=== PATIENT | male | born 1975 | race Caucasian/White ===

== ENCOUNTER 2021-11-13 16:20 | Inpatient (IN) | payer SELFPAY ==
[~2021-11-13] VITALS: Ht 167.6 cm; Wt 68.3 kg
[2021-11-13] MEDS ORDERED: SODIUM CHLORIDE 0.9% 1,000 ML IV ONE ×2 (16:45→18:45)
[2021-11-13 17:21] LABS: BASOPHILS % 0.6 % (0.0-2.0); EOSINOPHILS % 0.2 % (0.0-5.0); HEMATOCRIT. 41.4 % (42.0-52.0); HEMOGLOBIN. 13.5 g/dL (14.0-18.0); LYMPHOCYTES % 20.5 % (20.0-50.0); MEAN CORPUSCULAR HEMOGLOBIN 29.1 pg (28.0-32.0); MEAN CORPUSCULAR VOLUME 89.6 fL (80.0-94.0); MEAN PLATELET VOLUME 7.9 fl (7.4-10.4); MONOCYTES % 6.6 % (2.0-8.0); NEUTROPHILS % 72.1 % (40.0-76.0); PLATELET 406 x1000/uL (130-400); RED BLOOD CELL COUNT 4.62 mill/uL (4.7-6.1); RED CELL DISTRIBUTION WIDTH 16.2 % (11.6-14.6)
[2021-11-13 17:39] LABS: CHLORIDE 95 mEq/L (98-107)
[2021-11-13 17:41] LABS: BG BASE EXCESS -1.4 mmol/L (-2.0-2.0); BG CARBOXYHEMOGLOBIN 1.2 % (0.5-1.5); BG DEOXYHEMOGLOBIN 5.1 % (0.0-5.0); BG FRACTION INSPIRED OXYGEN 21; BG HCO3 ACT 24.2 mmol/L (22.0-26.0); BG METHEMOGLOBIN 0.2 % (0.0-1.5); BG OXYGEN SATURATION 94.8 % (92.0-98.5); BG OXYHEMOGLOBIN 93.5 % (94.0-97.0); BG PCO2 44.3 mmHg (35.0-45.0); BG PH 7.356 (7.350-7.450); BG SAMPLE SITE RIGHT RADIAL; BG TOTAL HEMOGLOBIN 14.1 g/dL (12.0-18.0); BG VENT MODE ROOM AIR
[2021-11-13 17:48] LABS: BETA HYDROXYBUTYRATE 0.9 mMol/L (0.0-0.3); ETHANOL BLOOD < 10 mg/dL
[2021-11-13] MEDS ORDERED: INSULIN REGULAR (HUMULIN R) 300UNITS/3ML VIAL IV ONE (18:15)
[2021-11-13 18:43] LABS: CLARITY URINE CLEAR (CLEAR); COLOR URINE YELLOW (YELLOW); KETONES URINE TRACE (NEGATIVE); LEUKOCYTE ESTERASE URINE NEGATIVE (NEGATIVE); NITRITE URINE NEGATIVE (NEGATIVE); OCCULT BLOOD URINE NEGATIVE (NEGATIVE); PROTEIN URINE NEGATIVE (NEGATIVE); SPECIFIC GRAVITY URINE 1.033 (1.005-1.030); UROBILINOGEN URINE 0.2 E.U./dL (0.2-1.0)
[2021-11-13 18:54] LABS: *AMPHETAMINES SCREEN URINE NEGATIVE (NEGATIVE); *BARBITURATES SCREEN URINE NEGATIVE (NEGATIVE); *BENZODIAZEPINES SCREEN URINE NEGATIVE (NEGATIVE); *COCAINE SCREEN URINE NEGATIVE (NEGATIVE); CANNABINOID URINE SCREEN NEGATIVE (NEGATIVE); METHADONE URINE SCREEN NEGATIVE (NEGATIVE); OPIATES URINE SCREEN NEGATIVE (NEGATIVE); PHENCYCLIDINE URINE SCREEN NEGATIVE (NEGATIVE)
[2021-11-13] MEDS ORDERED: FAMOTIDINE 20MG TABLET PO SCH (21:00)
[2021-11-13] MEDS ORDERED: MAGNESIUM/ALUMINUM HYDROXIDE/SIMETHICONE 30ML UDC PO PRN (21:00)
[2021-11-13] MEDS ORDERED: ACETAMINOPHEN 325MG TABLET PO PRN ×2 (21:00)
[2021-11-13] MEDS ORDERED: ONDANSETRON HCL 4MG/2ML INJ IV PRN (21:00)
[2021-11-13] MEDS ORDERED: ZOLPIDEM TARTRATE 5MG TABLET PO PRN (21:00)
[2021-11-13] MEDS ORDERED: CLONIDINE 0.1MG TABLET PO PRN (21:00)
[2021-11-13] MEDS ORDERED: DEXTROSE 50% WATER 50ML SYRINGE IV PRN (21:00)
[2021-11-13] MEDS ORDERED: DIPHENHYDRAMINE 50MG/ML VIAL IV PRN (21:00)
[2021-11-13] MEDS: BLOOD SUGAR DIAGNOSTIC STRIP TEST SCH (21:50)
[2021-11-13] MEDS: SODIUM CHLORIDE 0.9% 1,000 ML IV SCH (21:55)
[2021-11-13] MEDS ORDERED: INSULIN GLARGINE 100 UNITS/ML SUBCUT SCH (22:00)
[2021-11-13] MEDS: INSULIN LISPRO 100 UNITS/ML SUBCUT SCH (22:19)
[2021-11-14 06:37] LABS: BASOPHILS % 1.1 % (0.0-2.0); EOSINOPHILS % 0.7 % (0.0-5.0); HEMATOCRIT. 37.9 % (42.0-52.0); HEMOGLOBIN. 12.8 g/dL (14.0-18.0); LYMPHOCYTES % 25.8 % (20.0-50.0); MEAN CORPUSCULAR HEMOGLOBIN 28.8 pg (28.0-32.0); MEAN CORPUSCULAR VOLUME 85.3 fL (80.0-94.0); MEAN PLATELET VOLUME 7.3 fl (7.4-10.4); MONOCYTES % 7.1 % (2.0-8.0); NEUTROPHILS % 65.3 % (40.0-76.0); PLATELET 377 x1000/uL (130-400); RED BLOOD CELL COUNT 4.45 mill/uL (4.7-6.1); RED CELL DISTRIBUTION WIDTH 15.8 % (11.6-14.6)
[2021-11-14 06:41] LABS: CHLORIDE 109 mEq/L (98-107)
[2021-11-14 06:45] LABS: PHOSPHORUS 4.3 mg/dL (2.5-4.9)
[2021-11-14] MEDS ORDERED: METFORMIN HCL 500MG TABLET PO SCH (07:00)
[2021-11-14] MEDS: BLOOD SUGAR DIAGNOSTIC STRIP TEST SCH ×3 (08:05→12:20)
[2021-11-14] MEDS: INSULIN LISPRO 100 UNITS/ML SUBCUT SCH ×2 (08:06→12:50)
[2021-11-14] MEDS: SODIUM CHLORIDE 0.9% 1,000 ML IV SCH (08:10)
[2021-11-14] MEDS ORDERED: POTASSIUM CHLORIDE 20MEQ TABLET SR PO NR (10:00)
[2021-11-14 12:00] VITALS: BP 124/67
[2021-11-14 15:08] VITALS: BP 124/67
== END 2021-11-14 16:02 | disposition home or self-care (01) | DRG 420 ==
LOC: ER 16:20 → MICUSO 19:13 → ENRESERV 20:02 → 6EST 11-14 11:52
PROVIDERS: ADMIT Internal Medicine; ATTEND Internal Medicine
DX: E11.65 Type 2 diabetes mellitus with hyperglycemia (principal); E87.1 Hypo-osmolality and hyponatremia; E86.0 Dehydration; K02.9 Dental caries, unspecified; Z83.3 Family history of diabetes mellitus
CPT/HCPCS: 36415; 36600; 71045; 80048; 80053; 80305; 80320; 81003; 82010; 82375; 82805; 82962; 83036; 83735; 84100; 85025; 93005; 99291; J1815; J7030; G0480

== ENCOUNTER 2022-03-05 15:39 | Emergency (ER) | payer SELFPAY ==
[~2022-03-05] VITALS: Ht 172.7 cm; Wt 68.0 kg
[2022-03-05 19:58] LABS: BASOPHILS % 0.5 % (0.0-2.0); EOSINOPHILS % 0.4 % (0.0-5.0); HEMATOCRIT. 39.8 % (42.0-52.0); LYMPHOCYTES % 37.5 % (20.0-50.0); MEAN CORPUSCULAR HEMOGLOBIN 27.2 pg (28.0-32.0); MEAN CORPUSCULAR VOLUME 83.2 fL (80.0-94.0); MEAN PLATELET VOLUME 7.5 fl (7.4-10.4); MONOCYTES % 6.7 % (2.0-8.0); NEUTROPHILS % 54.9 % (40.0-76.0); PLATELET 512 x1000/uL (130-400); RED BLOOD CELL COUNT 4.79 mill/uL (4.7-6.1); RED CELL DISTRIBUTION WIDTH 14.5 % (11.6-14.6)
[2022-03-05 20:05] LABS: CHLORIDE 105 mEq/L (98-107)
[2022-03-05 20:12] LABS: ETHANOL BLOOD < 10 mg/dL
[2022-03-05 20:15] LABS: *AMPHETAMINES SCREEN URINE NEGATIVE (NEGATIVE); *BARBITURATES SCREEN URINE NEGATIVE (NEGATIVE); *BENZODIAZEPINES SCREEN URINE NEGATIVE (NEGATIVE); *COCAINE SCREEN URINE NEGATIVE (NEGATIVE); CANNABINOID URINE SCREEN NEGATIVE (NEGATIVE); METHADONE URINE SCREEN NEGATIVE (NEGATIVE); OPIATES URINE SCREEN NEGATIVE (NEGATIVE); PHENCYCLIDINE URINE SCREEN NEGATIVE (NEGATIVE)
[2022-03-05] MEDS ORDERED: OMEP20CA14 MT (20:41)
[2022-03-05 22:15] VITALS: BP 112/75
== END 2022-03-05 21:00 | disposition home or self-care (01) ==
LOC: ER 16:48
DX: R10.9 Unspecified abdominal pain (principal); E11.65 Type 2 diabetes mellitus with hyperglycemia
CPT/HCPCS: 36415; 80053; 80305; 80320; 82962; 85025; 99283; G0480

== ENCOUNTER 2022-06-23 18:10 | Emergency (ER) | payer SELFPAY ==
[~2022-06-23] VITALS: Ht 167.6 cm; Wt 82.1 kg
[~2022-06-23 18:10] MED LIST: OMEP20CA14 MT
[2022-06-23 23:15] LABS: BASOPHILS % 0.9 % (0.0-2.0); EOSINOPHILS % 0.3 % (0.0-5.0); HEMATOCRIT. 40.5 % (42.0-52.0); HEMOGLOBIN. 13.1 g/dL (14.0-18.0); LYMPHOCYTES % 30.6 % (20.0-50.0); MEAN CORPUSCULAR HEMOGLOBIN 25.8 pg (28.0-32.0); MEAN CORPUSCULAR VOLUME 79.5 fL (80.0-94.0); MEAN PLATELET VOLUME 7.3 fl (7.4-10.4); MONOCYTES % 10.6 % (2.0-8.0); NEUTROPHILS % 57.6 % (40.0-76.0); PLATELET 428 x1000/uL (130-400); RED BLOOD CELL COUNT 5.09 mill/uL (4.7-6.1); RED CELL DISTRIBUTION WIDTH 15.4 % (11.6-14.6)
[2022-06-23 23:21] LABS: CHLORIDE 105 mEq/L (98-107)
[2022-06-23 23:29] LABS: ETHANOL BLOOD < 10 mg/dL
[2022-06-23 23:52] LABS: PROTHROMBIN TIME 10.3 sec (9.6-11.0)
[2022-06-24 06:30] VITALS: BP 114/68
[2022-06-24] MEDS ORDERED: ACETAMINOPHEN 325MG TABLET PO ONE (08:15)
== END 2022-06-24 09:31 | disposition home or self-care (01) ==
LOC: ER 18:10
DX: R42 Dizziness and giddiness (principal); R20.0 Anesthesia of skin
CPT/HCPCS: 36415; 71045; 80053; 80320; 82962; 85025; 93005; 99285; G0480

== ENCOUNTER 2022-10-29 06:41 | Emergency (ER) | payer SELFPAY ==
[~2022-10-29] VITALS: Ht 172.7 cm; Wt 85.5 kg
[2022-10-29] MEDS ORDERED: KETOROLAC 30MG/ML VIAL IM ONE (10:30)
[2022-10-29 10:40] VITALS: BP 130/67
[2022-10-29] MEDS ORDERED: NAPR-681 MT (10:53)
[2022-10-29] MEDS ORDERED: ACET-2708 MT (10:53)
[2022-10-29] MEDS ORDERED: LIDO700A15 TP (10:53)
== END 2022-10-29 11:22 | disposition home or self-care (01) ==
LOC: ER 06:41
DX: M75.31 Calcific tendinitis of right shoulder (principal); E11.9 Type 2 diabetes mellitus without complications
CPT/HCPCS: 73030; 96372; 99283; J1885; Z7610

== ENCOUNTER 2023-03-19 08:15 | Emergency (ER) | payer SELFPAY ==
[~2023-03-19] VITALS: Ht 172.7 cm; Wt 95.3 kg
[~2023-03-19 08:15] MED LIST changes: +ACET-2708 MT; +LIDO700A15 TP; +NAPR-681 MT
[2023-03-19 08:25] VITALS: O2SAT 97
[2023-03-19 08:54] LABS: CLARITY URINE CLEAR (CLEAR); COLOR URINE YELLOW (YELLOW); GLUCOSE URINE 3+ (NEGATIVE); KETONES URINE 2+ (NEGATIVE); LEUKOCYTE ESTERASE URINE NEGATIVE (NEGATIVE); NITRITE URINE NEGATIVE (NEGATIVE); OCCULT BLOOD URINE NEGATIVE (NEGATIVE); PH URINE 6.5 (4.5-8.0); PROTEIN URINE TRACE (NEGATIVE)
[2023-03-19 09:11] LABS: BACTERIA URINE NONE SEEN; RBC URINE 0-2 /hpf (0-2); SQUAMOUS EPITHELIAL CELL URINE RARE /lpf (RARE/1+); WBC URINE 0-2 /hpf (0-2)
[2023-03-19 10:01] LABS: BASOPHILS % 1.9 % (0.0-2.0); DIFFERENTIAL COMMENT 0; EOSINOPHILS % 0.4 % (0.0-5.0); HEMATOCRIT. 40.1 % (42.0-52.0); HEMOGLOBIN. 12.6 g/dL (14.0-18.0); LYMPHOCYTES % 30.7 % (20.0-50.0); MEAN CORPUSCULAR HEMOGLOBIN 23.1 pg (28.0-32.0); MEAN CORPUSCULAR HGB CONC 31.3 g/dL (31.0-37.0); MEAN CORPUSCULAR VOLUME 73.6 fL (80.0-94.0); MONOCYTES % 6.5 % (2.0-8.0); NEUTROPHILS % 60.5 % (40.0-76.0); PLATELET 510 x1000/uL (130-400); RED BLOOD CELL COUNT 5.45 mill/uL (4.7-6.1); RED CELL DISTRIBUTION WIDTH 18.2 % (11.6-14.6); WHITE BLOOD COUNT 8.4 x1000/uL (4.5-11.0)
[2023-03-19 10:06] LABS: CHLORIDE 101 mEq/L (98-107); INDEX HEMOLYSI 1 (1-3); INDEX ICTERIC 1 (1-4); INDEX LIPEMIC 1 (1-3); POTASSIUM 4.1 mEq/L (3.5-5.1); SODIUM 134 mEq/L (136-145)
[2023-03-19 10:08] LABS: CALCIUM 8.8 mg/dL (8.5-10.1)
[2023-03-19 10:16] LABS: ALANINE AMINOTRANSFERASE 30 IU/L (13-61); ALBUMIN 3.7 g/dL (3.4-5.0); ASPARTATE AMINOTRANSFERASE 14 IU/L (15-37); BETA HYDROXYBUTYRATE 0.4 mMol/L (0.0-0.3); CARBON DIOXIDE 27 mEq/L (21-32); CREATININE 0.5 mg/dL (0.6-1.3); GLUCOSE 299 mg/dL (70-105); PROTEIN TOTAL 7.8 g/dL (6.0-8.3); TROPONIN I HIGH SENSITIVITY 5 ng/L (<78); UREA NITROGEN BLOOD 15 mg/dL (7-21)
[2023-03-19] MEDS ORDERED: METF-414 MT (13:49)
[2023-03-19 14:00] VITALS: BP 138/70; PULSE 75; RESP 15; TEMP 98.2
== END 2023-03-19 14:01 | disposition home or self-care (01) ==
LOC: ER 08:16
DX: R73.9 Hyperglycemia, unspecified (principal); Z79.899 Other long term (current) drug therapy
CPT/HCPCS: 36415; 80053; 81003; 82010; 84484; 85025; 93005; 99284

== ENCOUNTER 2023-11-11 09:58 | Emergency (ER) | payer SELFPAY ==
[~2023-11-11] VITALS: Ht 167.6 cm; Wt 68.0 kg
[~2023-11-11 09:58] MED LIST changes: +METF-414 MT
[2023-11-11 10:05] VITALS: O2SAT 99
[2023-11-11] MEDS ORDERED: ACETAMINOPHEN 325MG TABLET PO ONE (10:15)
[2023-11-11 12:45] LABS: CLARITY URINE CLEAR (CLEAR); COLOR URINE YELLOW (YELLOW); GLUCOSE URINE 3+ (NEGATIVE); KETONES URINE 4+ (NEGATIVE); LEUKOCYTE ESTERASE URINE NEGATIVE (NEGATIVE); NITRITE URINE NEGATIVE (NEGATIVE); OCCULT BLOOD URINE 2+ (NEGATIVE); PH URINE 5.5 (4.5-8.0); PROTEIN URINE NEGATIVE (NEGATIVE); SPECIFIC GRAVITY URINE 1.042 (1.005-1.030); UROBILINOGEN URINE 0.2 E.U./dL (0.2-1.0)
[2023-11-11 13:09] LABS: RBC URINE 0-2 /hpf (0-2); SQUAMOUS EPITHELIAL CELL URINE RARE /lpf (RARE/1+); WBC URINE 0-2 /hpf (0-2)
[2023-11-11 13:10] LABS: BACTERIA URINE NONE SEEN
[2023-11-11 13:47] LABS: BG CARBOXYHEMOGLOBIN 0.8 % (0.5-1.5); BG FRACTION INSPIRED OXYGEN 21; BG HCO3 ACT 23.3 mmol/L (22.0-26.0); BG METHEMOGLOBIN 0.3 % (0.0-1.5); BG OXYGEN SATURATION 94.9 % (92.0-98.5); BG OXYHEMOGLOBIN 93.9 % (94.0-97.0); BG PCO2 41.8 mmHg (35.0-45.0); BG PH 7.364 (7.350-7.450); BG PO2 79.8 mmHg (75.0-100.0); BG SAMPLE SITE RIGHT RADIAL; BG TOTAL HEMOGLOBIN 14.3 g/dL (12.0-18.0); BG VENT MODE ROOM AIR
[2023-11-11 13:54] LABS: BASOPHILS % 0.2 % (0.0-2.0); EOSINOPHILS % 0.2 % (0.0-5.0); HEMATOCRIT. 42.1 % (42.0-52.0); HEMOGLOBIN. 13.8 g/dL (14.0-18.0); LYMPHOCYTES % 22.9 % (20.0-50.0); MEAN CORPUSCULAR HEMOGLOBIN 29.7 pg (28.0-32.0); MEAN CORPUSCULAR HGB CONC 32.8 g/dL (31.0-37.0); MEAN CORPUSCULAR VOLUME 90.4 fL (80.0-94.0); MEAN PLATELET VOLUME 7.7 fl (7.4-10.4); MONOCYTES % 5.6 % (2.0-8.0); NEUTROPHILS % 71.1 % (40.0-76.0); PLATELET 524 x1000/uL (130-400); RED BLOOD CELL COUNT 4.66 mill/uL (4.7-6.1); RED CELL DISTRIBUTION WIDTH 14.7 % (11.6-14.6); WHITE BLOOD COUNT 10.6 x1000/uL (4.5-11.0)
[2023-11-11 13:59] LABS: CHLORIDE 97 mEq/L (98-107); POTASSIUM 5.2 mEq/L (3.5-5.1); SODIUM 132 mEq/L (136-145)
[2023-11-11 14:00] LABS: CALCIUM 8.7 mg/dL (8.7-10.4); CARBON DIOXIDE 25 mEq/L (21-32)
[2023-11-11] MEDS: ACETAMINOPHEN 325MG TABLET PO NR (14:00)
[2023-11-11 14:05] LABS: CREATININE 0.8 mg/dL (0.6-1.3); GLUCOSE 337 mg/dL (70-105); UREA NITROGEN BLOOD 9 mg/dL (9-23)
[2023-11-11 14:07] LABS: ALANINE AMINOTRANSFERASE 36 IU/L (10-49); ALBUMIN 4.2 g/dL (3.2-4.8); ASPARTATE AMINOTRANSFERASE 24 IU/L (<34)
[2023-11-11 14:08] LABS: BILIRUBIN TOTAL 0.5 mg/dL (0.1-1.0); PROTEIN TOTAL 7.3 g/dL (6.0-8.3)
[2023-11-11] MEDS ORDERED: METF-414 MT (14:43)
[2023-11-11 15:00] VITALS: BP 138/79; PULSE 69; RESP 17; TEMP 98.1
[2023-11-11] MEDS: SODIUM POLYSTYRENE SULFONATE 15 G/60 ML BOT PO ONE (15:00)
[2023-11-11 16:15] LABS: BETA HYDROXYBUTYRATE 5.3 mMol/L (0.0-0.3)
== END 2023-11-11 17:38 | disposition home or self-care (01) ==
LOC: ER 09:58
DX: E11.65 Type 2 diabetes mellitus with hyperglycemia (principal)
CPT/HCPCS: 36415; 36600; 80053; 81003; 82010; 82375; 82805; 82962; 85025; 99283

== ENCOUNTER 2024-03-29 12:47 | Emergency (ER) | payer SELFPAY ==
[~2024-03-29] VITALS: Ht 165.1 cm; Wt 68.0 kg
[2024-03-29 13:03] VITALS: TEMP 98.7; O2SAT 97
[2024-03-29] MEDS ORDERED: FLUT9.9S BOTHNSTRLS (13:31)
[2024-03-29] MEDS ORDERED: AMOX1TAB16 MT (13:31)
[2024-03-29 13:36] VITALS: BP 127/64; PULSE 76; RESP 14; O2SAT 99
== END 2024-03-29 15:20 | disposition home or self-care (01) ==
LOC: ER 12:47
DX: J32.9 Chronic sinusitis, unspecified (principal); K06.9 Disorder of gingiva and edentulous alveolar ridge, unspecified; E11.9 Type 2 diabetes mellitus without complications; Z79.899 Other long term (current) drug therapy
CPT/HCPCS: 99283

== ENCOUNTER 2025-02-02 09:48 | Emergency (ER) | payer SELFPAY ==
[~2025-02-02] VITALS: Ht 170.2 cm; Wt 72.0 kg
[~2025-02-02 09:48] MED LIST changes: +AMOX1TAB16 MT; +FLUT9.9S BOTHNSTRLS; +LIDO-53 TP; -LIDO700A15 TP
[2025-02-02 10:00] VITALS: O2SAT 96
[2025-02-02] MEDS ORDERED: NAPR-681 MT (10:06)
[2025-02-02] MEDS ORDERED: ACET-2708 MT (10:06)
[2025-02-02] MEDS ORDERED: AMOX1TAB16 MT (10:06)
[2025-02-02] MEDS: IBUPROFEN 600MG TABLET PO ONE (10:30)
[2025-02-02] MEDS: PENICILLIN V POTASSIUM 250MG TABLET PO SCH (10:30)
[2025-02-02 10:35] VITALS: BP 128/78; PULSE 70; RESP 16; TEMP 37.1; O2SAT 98
== END 2025-02-02 10:37 | disposition home or self-care (01) ==
LOC: ER 09:48
DX: K04.7 Periapical abscess without sinus (principal); K02.9 Dental caries, unspecified; E11.9 Type 2 diabetes mellitus without complications; Z79.899 Other long term (current) drug therapy
CPT/HCPCS: 99283